=== PATIENT | female | born 1995 | race Caucasian/White ===

== ENCOUNTER 2016-07-19 15:23 | Emergency (ER) | payer BC, SELFPAY ==
--- NOTE | 2016-07-19 15:26 | EDM.PDOC ---
ED HPI Trauma - General Chief Complaint: Lower Extremity Injury/Pain Stated Complaint: [id number] FELL ON ICE AND POPPED KNEE OUT Time Seen by Provider: 07/19/16 15:26 Source: Reports: Patient, RN, RN notes reviewed History Limitations: Reports: No limitations - History of Present Illness INITIAL COMMENTS - FREE TEXT/NARRATIVE: She slipped on the ice and landed on her buttock while leaving a client's home at work. Presents to the ER with complaint of right knee pain from the fall. When she fell she states that she heard a loud pop from the right knee. She states that the accident happened so fast that she does not recall or remember what position it was in. Denies any other injury. Symptom Onset Date: 07/19/16 Occurred When: just prior to arrival Occurred Where: work Method of Injury: fall Severity: severe Pain/Injury Location: Reports: lower extremity, right Consciousness: Reports: no loss of consciousness Associated Symptoms: Reports: no other symptoms Allergies/ADRs: Allergies cephalexin monohydrate [From Keflex] Allergy (Verified 07/19/16 15:30) Hives Home Medications: Ambulatory Orders Omeprazole [Omeprazole] 20 mg PO DAILY 05/08/14 [Confirmed 07/19/16] Escitalopram [Lexapro] 10 mg PO DAILY 07/19/16 [Confirmed 07/19/16] Etonogestrel [Nexplanon] 68 mg SQ ASDIRECTED 07/19/16 [Confirmed 07/19/16] Lisinopril 20 mg PO DAILY 07/19/16 [Confirmed 07/19/16] Past Medical History Endocrine/Metabolic History: Reports: Obesity/BMI 30+ (morbid) Social & Family History - Family History Family Medical History: Noncontributory - Tobacco Use Smoking Status *Q: Never Smoker Second Hand Smoke Exposure: Yes - Alcohol Use Days Per Week of Alcohol Use: 1 Number of Drinks Per Day: 1 Total Drinks Per Week: 1 - Recreational Drug Use Recreational Drug Use: No Review of Systems - Review of Systems Review Of Systems: ROS reveals no pertinent complaints other than HPI. Trauma Exam - Physical Exam Exam: See Below Exam Limited By: No limitations General Appearance: Reports: obese Head: Reports: atraumatic, normocephalic Respiratory Exam: Reports: no respiratory distress Cardiovascular: Reports: normal peripheral pulses Back: Reports: full range of motion, normal inspection, non-tender Extremities: Reports: other (medial joint line tenderness at right knee. Flexion limited to 25 degrees full extension. No visible bruising, swelling or deformity, but exam limited by pain and morbid obesity. 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, no motor/sensory deficits, alert , normal mood/affect, oriented x 3 Skin: Reports: Normal color, Warm/dry Course - Vital Signs Last Recorded V/S: Last Vital Signs Temp 35.9 C 07/19/16 15:34 Pulse 88 07/19/16 15:34 Resp 20 07/19/16 15:34 BP 145/75 H 07/19/16 15:34 Pulse Ox 98 07/19/16 15:34 - Orders/Labs/Meds Orders: Active Orders 24 hr Category Date Time Status DME for Discharge [COMM] Routine Oth 07/19/16 16:13 Ordered Meds: Medications Discontinued Medications Generic Name Dose Route Start Last Admin Trade Name Freq PRN Reason Stop Dose Admin Ibuprofen 800 mg 07/19/16 16:13 07/19/16 16:17 Motrin PO 07/19/16 16:14 800 mg ONETIME ONE Administration - Radiology Interpretation Free Text/Narrative:: X-ray of right knee: Per rad report shows no fracture. Negative exam. Departure - Departure Time of Disposition: 16:13 Disposition: Home, Self-Care 01 Condition: good Clinical Impression: Right knee sprain Qualifiers: Encounter type: initial encounter Involved ligament of knee: unspecified ligament Qualified Code(s): S83.91XA - Sprain of unspecified site of right knee , initial encounter Instructions: Crutch Use, [id number], Knee Sprain, [id number] Forms: ED Department Discharge Additional Instructions: Rx: Motrin 800mg Rest, ice, and elevate right knee as needed to reduce pain and swelling. Use crutches for partial weight bearing as needed for 7 to 10 days. Follow up in clinic in 7 to 10 days. - My Orders Last 24 Hours: My Active Orders 07/19/16 16:13 DME for Discharge [COMM] Routine - Assessment/Plan Last 24 Hours: My Active Orders 07/19/16 16:13 DME for Discharge [COMM] Routine
[2016-07-19 15:35] VITALS: BP 145/75
[2016-07-19] MEDS ORDERED: Ibuprofen 800 MG Tab PO ONE (16:13)
--- NOTE | 2016-07-19 16:19 | CR ---
Clinical history: 20-year-old female right knee pain (fall). Interpretation: Negative exam. Symmetric knee joint spacing and no effusion, fracture, dislocation or radiopaque loose joint body.
== END 2016-07-19 16:25 | disposition home or self-care (01) ==
LOC: DL.ED 15:23
DX: S83.91XA Sprain of unspecified site of right knee, initial encounter (principal); E66.9 Obesity, unspecified; Z88.1 Allergy status to other antibiotic agents; W00.0XXA Fall on same level due to ice and snow, initial encounter; Y99.0 Civilian activity done for income or pay
CPT/HCPCS: 73562; 99283; A9270

== ENCOUNTER 2023-04-28 19:03 | Emergency (ER) | payer BC, OTHER ==
[2023-04-28 19:24] VITALS: BP 140/89; PULSE 75
[2023-04-28] MEDS ORDERED: Sodium Chloride 0.9% 10 ML Syringe FLUSH PRN (19:32)
[2023-04-28] MEDS ORDERED: Morphine 2 MG/ML SYRINGE IVPUSH ONE (19:33)
[2023-04-28] MEDS ORDERED: Naloxone 2 MG/2 ML Syringe IVPUSH PRN (19:33)
[2023-04-28 19:42] LABS: BASOPHILS PERCENT AUTO 0.2 % (0.0-1.0); EOSINOPHILS PERCENT AUTO 1.6 % (1.0-3.0); HEMATOCRIT 41.4 % (37.0-47.0); HEMOGLOBIN 13.5 g/dL (12.0-16.0); LYMPHOCYTES PERCENT AUTO 20.2 % (20.5-50.1); MEAN CORPUSCULAR HEMOGLOBIN 28.7 pg (27.0-34.0); MEAN CORPUSCULAR HGB CONC 32.6 g/dL (33.0-35.0); MEAN CORPUSCULAR VOLUME 87.9 fL (80-100); MONOCYTES PERCENT AUTO 6.1 % (2-8); NEUTROPHILS PERCENT AUTO 71.9 % (42.2-75.2); PLATELET COUNT,PLT 284 10^3/uL (150-450); RED BLOOD CELL COUNT 4.71 10^6/uL (4.2-5.4); WHITE BLOOD CELL COUNT,WBC 8.2 10^3/uL (5.0-10.0)
[2023-04-28 19:56] LABS: A/G RATIO 1.1; ALBUMIN 3.8 g/dL (3.4-5.0); ANION GAP 10.9 mEq/L (7-13); BILIRUBIN TOTAL 0.5 mg/dL (0.2-1.0); BUN/CREATININE RATIO 12.8 (No establ ref range); CALCIUM 8.9 mg/dL (8.5-10.1); CREATININE 0.78 mg/dL (0.55-1.02); EST CRCL DRUG DOSING (CG) 113.22 mL/min; MAGNESIUM 1.9 mg/dL (1.8-2.4); POTASSIUM,K 3.9 mmol/L (3.5-5.1); PROTEIN TOTAL,TP 7.3 g/dL (6.4-8.2)
[2023-04-28 20:02] LABS: APPEARANCE,URINE CLEAR (CLEAR); BILIRUBIN,URINE NEGATIVE (NEGATIVE); COLOR,URINE YELLOW (YELLOW); GLUCOSE,URINE NEGATIVE (NEGATIVE); KETONES,URINE TRACE (NEGATIVE); LEUKOCYTE ESTERASE,URINE NEGATIVE (NEGATIVE); NITRITE,URINE NEGATIVE (NEGATIVE); OCCULT BLOOD,URINE NEGATIVE (NEGATIVE); PH,URINE 6.5 (5.0-9.0); PROTEIN,URINE NEGATIVE (NEGATIVE); UROBILINOGEN,URINE 0.2 mg/dL (0.2-1.0)
[2023-04-28] MEDS ORDERED: Sodium Chloride 0.9% 1,000 ML IV ONE (20:10)
[2023-04-28] MEDS: Iopamidol 612 MG/ML 100 ML Bottle IVPUSH ONE ×2 (20:23→20:49)
[2023-04-28] MEDS ORDERED: Iopamidol 612 MG/ML 100 ML Bottle IVPUSH ONE (20:29)
[2023-04-28] MEDS ORDERED: Aluminum Hydroxide/Magnesium Hydroxide/Simethicone Susp 30 ML Cup PO ONE (21:27)
[2023-04-28] MEDS ORDERED: diphenhydrAMINE 12.5 MG/5 ML Liquid 5 ML UD Cup PO ONE (21:27)
[2023-04-28] MEDS ORDERED: Lidocaine 2% Viscous Solution 15 ML UD PO ONE (21:27)
[2023-04-28] MEDS ORDERED: Lactulose Soln 10 GM/15 ML 30 ML UD Cup PO ONE (21:47)
[2023-04-28] MEDS ORDERED: Ondansetron 4 MG/2 ML SDV IVPUSH ONE (21:55)
[2023-04-28] MEDS ORDERED: Take Home: Ondansetron 4 MG Tab.DIS, 5 Tab Pack PO ONE (22:40)
== END 2023-04-28 23:00 | disposition home or self-care (01) ==
LOC: DL.ED 19:03
DX: N83.201 Unspecified ovarian cyst, right side (principal); K59.00 Constipation, unspecified; K20.90 Esophagitis, unspecified without bleeding; K76.0 Fatty (change of) liver, not elsewhere classified; K21.9 Gastro-esophageal reflux disease without esophagitis; E66.9 Obesity, unspecified; Z68.43 Body mass index [BMI] 50.0-59.9, adult; Z88.8 Allergy status to other drugs, medicaments and biological substances; Z79.899 Other long term (current) drug therapy
CPT/HCPCS: 36415; 74177; 80053; 81003; 81025; 83690; 83735; 85025; 96361; 96374; 96375; 99284; A9270; J2270; J2405; J7030; Q0162; Q9967; J3490

== ENCOUNTER 2023-05-03 07:03 | Day surgery (SDC) | payer OTHER ==
[2023-05-03] MEDS: Dextrose 5%-0.45% NaCl 1,000 ML IV SCH (07:30)
[2023-05-03] MEDS ORDERED: Midazolam 1 MG/ML 2 ML SDV ONE (08:19)
[2023-05-03] MEDS ORDERED: Midazolam 1 MG/ML 2 ML SDV IV ONE (08:19)
[2023-05-03] MEDS ORDERED: fentaNYL 100 MCG/2 ML SDV ONE (08:19)
[2023-05-03] MEDS ORDERED: fentaNYL 100 MCG/2 ML SDV IV ONE (08:19)
[2023-05-03] MEDS: fentaNYL 100 MCG/2 ML SDV IV ONE ×2 (08:25)
[2023-05-03] MEDS: Midazolam 1 MG/ML 2 ML SDV IV ONE ×2 (08:26)
[2023-05-03 10:57] VITALS: PULSE 93
[2023-05-03 10:58] VITALS: BP 137/69
== END 2023-05-03 10:30 | disposition home or self-care (01) ==
LOC: DL.ENDO 07:03
PROVIDERS: ATTEND Internal Medicine Gastroenterology
DX: R12 Heartburn (principal); I10 Essential (primary) hypertension; K21.9 Gastro-esophageal reflux disease without esophagitis; Z79.899 Other long term (current) drug therapy
CPT/HCPCS: 81025; 87077; J2250; J3010; J7042